=== PATIENT | female | born 1985 | race Caucasian/White ===

== ENCOUNTER 2016-11-27 23:32 | Inpatient (IN) | payer BC ==
[2016-11-28] MEDS ORDERED: Calcium Carbonate 500 MG Tab.Chew PO PRN (03:48)
[2016-11-28] MEDS ORDERED: Lactated Ringers 1,000 ML IV ONE (05:00)
[2016-11-28] MEDS ORDERED: fentaNYL 300 MCG in Ropivacaine 200 ML EPIDUR ONE (05:14)
[2016-11-28] MEDS ORDERED: fentaNYL 100 MCG/2 ML SDV EPIDUR ONE (05:14)
[2016-11-28] MEDS ORDERED: Sodium Chloride 0.9% 10 ML Syringe FLUSH PRN (05:18)
[2016-11-28] MEDS ORDERED: Promethazine 25 MG/ML SDV IV PRN (05:45)
[2016-11-28] MEDS ORDERED: diphenhydrAMINE 50 MG/ML SDV IVPUSH PRN (05:45)
[2016-11-28] MEDS ORDERED: ePHEDrine 50 MG/ML SDV IVPUSH PRN (05:45)
[2016-11-28] MEDS ORDERED: Naloxone 0.4 MG in Sodium Chloride 0.9% 100 ML IV PRN (05:45)
[2016-11-28] MEDS ORDERED: Naloxone 0.4 MG/ML SDV IVPUSH PRN (05:45)
[2016-11-28] MEDS ORDERED: Lactated Ringers 1,000 ML IV SCH (06:00)
[2016-11-28] MEDS ORDERED: ePHEDrine 50 MG/ML SDV ONE (07:05)
[2016-11-28] MEDS ORDERED: Naloxone 0.4 MG/ML SDV ONE (07:05)
--- NOTE | 2016-11-28 08:25 | PCM.SN ---
- Free Text/Narrative Note: 30, para 0 group B negative obtain rupture membranes and she is term. Cervix is 9 cm/90/0 Assessment remnant term spontaneous rupture membranes group B- Plan-vaginal delivery/epidural
[2016-11-28] MEDS ORDERED: Ondansetron 4 MG/2 ML SDV IVPUSH PRN (10:10)
[2016-11-28] MEDS ORDERED: Lidocaine 1% 20 ML MDV INJECT ONE (11:35)
[2016-11-28] MEDS ORDERED: Oxytocin 10 Units/1 ML SDV IM ONE (11:35)
--- NOTE | 2016-11-28 12:06 | PCM.DEL ---
L & D Note - General Info Date of Service: 11/28/16 - Delivery Note Labor: Spontaneous Delivery Outcome: Livebirth Delivery Mode: Spontaneous Presentation: OA Nuchal Cord: None Prep: Other Anesthesia Type: Epidural Anesthetic: Lidocaine (Xylocaine) 1% Plain Local Anesthetic Volume: 5cc Amniotic Fluid Description: Clear Episiotomy Type: None Laceration: 2nd Degree Suture type: Vicryl Suture size: 4-0 Placenta: Intact, Spontaneous Cord: 3 Vessels Resuscitation Needed: No : Suctioned Delivery Comments (Free Text/Narrative):: Blood loss less than 500 cc and complications none - Patient Data Vitals - Most Recent: Last Vital Signs Temp 98 F 11/28/16 07:00 Pulse 90 11/28/16 08:20 Resp 18 11/28/16 07:00 BP 138/84 11/28/16 08:20 Pulse Ox Weight - Most Recent: 280 lb I&O - Last 24 Hours: Intake & Output 11/27/16 11/28/16 11/28/16 22:59 06:59 14:59 Intake Total 1500 Output Total 300 Balance 1200 Med Orders - Current: Current Medications Calcium Carbonate/Glycine (Tums) 1,000 mg PO Q2H PRN PRN Reason: Indigestion Last Admin: 11/28/16 04:04 Dose: 1,000 mg Diphenhydramine HCl (Benadryl) 25 mg IVPUSH ASDIRECTED PRN PRN Reason: PRURITUS Ephedrine Sulfate (Ephedrine Sulfate) 5 mg IVPUSH ASDIRECTED PRN PRN Reason: HYPOTENSION Lactated Ringer's (Ringers, Lactated) 1,000 mls @ 150 mls/hr IV ASDIRECTED LISANDRA Last Admin: 11/28/16 06:07 Dose: 150 mls/hr Naloxone HCl 0.4 mg/ Sodium (Chloride) 101 mls @ 25 mls/hr IV ASDIRECTED PRN PRN Reason: PER ORDER OF ANESTHESIA Naloxone HCl (Narcan) 0.1 mg IVPUSH ASDIRECTED PRN PRN Reason: RESPIRATORY STATUS Ondansetron HCl (Zofran) 4 mg IVPUSH Q6H PRN PRN Reason: NAUSEA/VOMITING Promethazine HCl (Phenergan) 6.25 - 12.5 mg IV Q4H PRN PRN Reason: NAUSEA AND VOMITING Sodium Chloride (Saline Flush) 10 ml FLUSH ASDIRECTED PRN PRN Reason: Keep Vein Open Discontinued Medications Ephedrine Sulfate (Ephedrine Sulfate) Confirm Administered Dose 50 mg .ROUTE .STK-MED ONE Stop: 11/28/16 07:06 Lactated Ringer's (Ringers, Lactated) 1,000 mls @ 999 mls/hr IV BOLUS ONE Stop: 11/28/16 06:00 Last Admin: 11/28/16 05:00 Dose: 999 mls/hr Naloxone HCl (Narcan) Confirm Administered Dose 0.4 mg .ROUTE .STK-MED ONE Stop: 11/28/16 07:06 - Problem List & Annotations (1) Vaginal delivery SNOMED Code(s): 361457092 Code(s): O80 - ENCOUNTER FOR FULL-TERM UNCOMPLICATED DELIVERY Status: Acute Current Visit: Yes - Problem List Review Problem List Initiated/Reviewed/Updated: Yes - My Orders Last 24 Hours: My Active Orders 11/28/16 00:08 Patient Status [ADT] Routine Resuscitation Status Routine 11/28/16 01:04 Admission Status [Patient Status] [ADT] Routine 11/28/16 03:48 Calcium Carbonate [Tums] 1,000 mg PO Q2H PRN 11/28/16 04:55 Peripheral IV Insertion Adult [OM.PC] Routine 11/28/16 05:18 Sodium Chloride 0.9% [Saline Flush] 10 ml FLUSH ASDIRECTED PRN 11/28/16 06:00 Lactated Ringers [Ringers, Lactated] 1,000 ml IV ASDIRECTED 11/28/16 12:02 Patient Status [ADT] Routine May Shower [RC] ASDIRECTED Up ad Kasie [RC] ASDIRECTED Vital Signs [RC] PFP Assess Lochia [WOMSER] Per Unit Routine Assess Uterine Involution [WOMSER] Per Unit Routine 11/28/16 12:03 Ice Therapy [OM.PC] Per Unit Routine Perineal Care [OM.PC] Per Unit Routine Peripheral IV Discontinue [OM.PC] Routine Sitz Bath [OM.PC] Per Unit Routine 11/29/16 05:11 HEMOGLOBIN/HEMATOCRIT,HH [HEME] AM 11/29/16 09:00 Cephalexin [Keflex] 500 mg PO DAILY - Plan Plan:: 1. Normal orders. 2. Patient take cephalexin for cellulitis prevention once a day. She is tolerating the past and does not have an allergy to it.
[2016-11-28] MEDS ORDERED: Acetaminophen/Codeine 300-30 MG Tab PO PRN (12:07)
[2016-11-28] MEDS: Ibuprofen 800 MG Tab PO SCH ×2 (12:35→20:36)
[2016-11-29] MEDS: Ibuprofen 800 MG Tab PO SCH ×3 (04:30→19:57)
--- NOTE | 2016-11-29 07:46 | PCM.PNPP ---
- General Info Date of Service: 11/29/16 Admission Dx/Problem (Free Text): Patient without concerns. She states her bleeding is decreasing. She is her perineum is sorb it is getting better and pain is controlled on ibuprofen. Nurses report she has some leg swelling. Functional Status: Reports: Pain Controlled - Patient Data Vital Signs - Most Recent: Last Vital Signs Temp 97.7 F 11/28/16 20:30 Pulse 95 11/28/16 20:30 Resp 18 11/28/16 20:30 BP 148/92 H 11/28/16 20:30 Pulse Ox 97 11/28/16 20:30 Weight - Most Recent: 280 lb I&O - Last 24 Hours: Intake & Output 11/28/16 11/29/16 11/29/16 22:59 06:59 14:59 Intake Total 1050 500 Output Total 900 1000 Balance 150 -500 Lab Results - Last 24 Hours: Laboratory Results - last 24 hr 11/29/16 Range/Units 07:00 Hgb 11.3 L (11.5-15.5) g/dL Hct 32.6 (30.0-51.3) % Med Orders - Current: Current Medications Acetaminophen/Codeine Phosphate (Tylenol With Codeine No.3 300mg/30mg) 1 tab PO Q4H PRN PRN Reason: Pain Calcium Carbonate/Glycine (Tums) 1,000 mg PO Q2H PRN PRN Reason: Indigestion Last Admin: 11/28/16 04:04 Dose: 1,000 mg Cephalexin (Keflex) 500 mg PO DAILY [facility] Diphenhydramine HCl (Benadryl) 25 mg IVPUSH ASDIRECTED PRN PRN Reason: PRURITUS Ephedrine Sulfate (Ephedrine Sulfate) 5 mg IVPUSH ASDIRECTED PRN PRN Reason: HYPOTENSION Lactated Ringer's (Ringers, Lactated) 1,000 mls @ 150 mls/hr IV ASDIRECTED [facility] Last Admin: 11/28/16 06:07 Dose: 150 mls/hr Naloxone HCl 0.4 mg/ Sodium (Chloride) 101 mls @ 25 mls/hr IV ASDIRECTED PRN PRN Reason: PER ORDER OF ANESTHESIA Ibuprofen (Motrin) 800 mg PO Q8H [facility] Last Admin: 11/29/16 04:30 Dose: 800 mg Naloxone HCl (Narcan) 0.1 mg IVPUSH ASDIRECTED PRN PRN Reason: RESPIRATORY STATUS Ondansetron HCl (Zofran) 4 mg IVPUSH Q6H PRN PRN Reason: NAUSEA/VOMITING Promethazine HCl (Phenergan) 6.25 - 12.5 mg IV Q4H PRN PRN Reason: NAUSEA AND VOMITING Sodium Chloride (Saline Flush) 10 ml FLUSH ASDIRECTED PRN PRN Reason: Keep Vein Open Discontinued Medications Ephedrine Sulfate (Ephedrine Sulfate) Confirm Administered Dose 50 mg .ROUTE .STK-MED ONE Stop: 11/28/16 07:06 Last Admin: 11/28/16 12:35 Dose: Not Given Lactated Ringer's (Ringers, Lactated) 1,000 mls @ 999 mls/hr IV BOLUS ONE Stop: 11/28/16 06:00 Last Admin: 11/28/16 05:00 Dose: 999 mls/hr Lidocaine HCl (Xylocaine 1%) 20 ml INJECT ONETIME ONE Stop: 11/28/16 11:36 Last Admin: 11/28/16 11:35 Dose: 20 ml Naloxone HCl (Narcan) Confirm Administered Dose 0.4 mg .ROUTE .STK-MED ONE Stop: 11/28/16 07:06 Last Admin: 11/28/16 12:35 Dose: Not Given Oxytocin (Pitocin) 10 unit IM ONETIME ONE Stop: 11/28/16 11:36 Last Admin: 11/28/16 11:35 Dose: 10 unit - Interaction Infant Disposition, : [place] in Room with Family Support Person: - Recovery Exam Fundal Tone: Firm Fundal Level: 2 Fingerbreadths Below Umbilicus Fundal Placement: Midline Lochia Amount: Moderate Lochia Color: Rubra/Red Perineum Description: Intact, Minimal Bruising/Swelling, Redness, Edematous Episiotomy/Laceration: Approximated Bladder Status: Nonpalpable Urinary Elimination: Voided - Exam General: Alert, Oriented, Cooperative Lungs: Normal Respiratory Effort GI/Abdominal Exam: Normal Bowel Sounds, Soft, Other (Fundus firm) Extremities: Pedal Edema Psy/Mental Status: Alert, Normal Affect, Normal Mood - Problem List & Annotations (1) Vaginal delivery SNOMED Code(s): 985648176 Code(s): O80 - ENCOUNTER FOR FULL-TERM UNCOMPLICATED DELIVERY Status: Acute Current Visit: Yes - Problem List Review Problem List Initiated/Reviewed/Updated: Yes - My Orders Last 24 Hours: My Active Orders 11/28/16 12:02 Patient Status [ADT] Routine May Shower [RC] ASDIRECTED Up ad Kasie [RC] ASDIRECTED Vital Signs [RC] PFP Assess Lochia [WOMSER] Per Unit Routine Assess Uterine Involution [WOMSER] Per Unit Routine 11/28/16 12:03 Ice Therapy [OM.PC] Per Unit Routine Perineal Care [OM.PC] Per Unit Routine Peripheral IV Discontinue [OM.PC] Routine Sitz Bath [OM.PC] Per Unit Routine 11/28/16 12:07 Acetaminophen/Codeine [Tylenol with Codeine No.3 300MG/30MG] 1 tab PO Q4H PRN 11/28/16 12:15 Ibuprofen [Motrin] 800 mg PO Q8H 11/29/16 09:00 Cephalexin [Keflex] 500 mg PO DAILY 11/29/16 Breakfast Regular Diet [DIET] - Plan Plan:: 1. Continue current care
[2016-11-29] MEDS: Cephalexin 500 MG Cap PO SCH (10:22)
[2016-11-30] MEDS: Ibuprofen 800 MG Tab PO SCH ×2 (04:39→12:04)
--- NOTE | 2016-11-30 06:51 | PCM.PN ---
- General Info Date of Service: 11/30/16 Admission Dx/Problem (Free Text): The patient without concerns. She says her vaginal bleeding has slowed immensely. Pains under control ibuprofen. She had some leg swelling and that's going down also. - Patient Data Vitals - Most Recent: Last Vital Signs Temp 97.8 F 11/30/16 00:20 Pulse 79 11/30/16 00:20 Resp 18 11/30/16 00:20 BP 137/80 11/30/16 00:20 Pulse Ox 98 11/30/16 00:20 Weight - Most Recent: 280 lb Lab Results Last 24 Hours: Laboratory Results - last 24 hr 11/29/16 Range/Units 07:00 Hgb 11.3 L (11.5-15.5) g/dL Hct 32.6 (30.0-51.3) % Med Orders - Current: Current Medications Acetaminophen/Codeine Phosphate (Tylenol With Codeine No.3 300mg/30mg) 1 tab PO Q4H PRN PRN Reason: Pain Calcium Carbonate/Glycine (Tums) 1,000 mg PO Q2H PRN PRN Reason: Indigestion Last Admin: 11/28/16 04:04 Dose: 1,000 mg Cephalexin (Keflex) 500 mg PO DAILY [facility] Last Admin: 11/29/16 10:22 Dose: 500 mg Diphenhydramine HCl (Benadryl) 25 mg IVPUSH ASDIRECTED PRN PRN Reason: PRURITUS Ephedrine Sulfate (Ephedrine Sulfate) 5 mg IVPUSH ASDIRECTED PRN PRN Reason: HYPOTENSION Lactated Ringer's (Ringers, Lactated) 1,000 mls @ 150 mls/hr IV ASDIRECTED [facility] Last Admin: 11/28/16 06:07 Dose: 150 mls/hr Naloxone HCl 0.4 mg/ Sodium (Chloride) 101 mls @ 25 mls/hr IV ASDIRECTED PRN PRN Reason: PER ORDER OF ANESTHESIA Ibuprofen (Motrin) 800 mg PO Q8H [facility] Last Admin: 11/30/16 04:39 Dose: 800 mg Naloxone HCl (Narcan) 0.1 mg IVPUSH ASDIRECTED PRN PRN Reason: RESPIRATORY STATUS Ondansetron HCl (Zofran) 4 mg IVPUSH Q6H PRN PRN Reason: NAUSEA/VOMITING Promethazine HCl (Phenergan) 6.25 - 12.5 mg IV Q4H PRN PRN Reason: NAUSEA AND VOMITING Sodium Chloride (Saline Flush) 10 ml FLUSH ASDIRECTED PRN PRN Reason: Keep Vein Open Discontinued Medications Ephedrine Sulfate (Ephedrine Sulfate) Confirm Administered Dose 50 mg .ROUTE .STK-MED ONE Stop: 11/28/16 07:06 Last Admin: 11/28/16 12:35 Dose: Not Given Fentanyl (Sublimaze) 100 mcg EPIDUR .STK-MED ONE Stop: 11/28/16 05:15 Lactated Ringer's (Ringers, Lactated) 1,000 mls @ 999 mls/hr IV BOLUS ONE Stop: 11/28/16 06:00 Last Admin: 11/28/16 05:00 Dose: 999 mls/hr Fentanyl 300 mcg/ Ropivacaine 206 mls @ as directed EPIDUR .STK-MED ONE Stop: 11/28/16 05:15 Lidocaine HCl (Xylocaine 1%) 20 ml INJECT ONETIME ONE Stop: 11/28/16 11:36 Last Admin: 11/28/16 11:35 Dose: 20 ml Naloxone HCl (Narcan) Confirm Administered Dose 0.4 mg .ROUTE .STK-MED ONE Stop: 11/28/16 07:06 Last Admin: 11/28/16 12:35 Dose: Not Given Oxytocin (Pitocin) 10 unit IM ONETIME ONE Stop: 11/28/16 11:36 Last Admin: 11/28/16 11:35 Dose: 10 unit - Exam General: Alert, Oriented, Cooperative Lungs: Normal Respiratory Effort GI/Abdominal Exam: Other (Fundus firm) Extremities: Pedal Edema - Problem List & Annotations (1) Vaginal delivery SNOMED Code(s): 140267347 Code(s): O80 - ENCOUNTER FOR FULL-TERM UNCOMPLICATED DELIVERY Status: Acute Current Visit: Yes - Problem List Review Problem List Initiated/Reviewed/Updated: Yes - My Orders Last 24 Hours: My Active Orders 11/29/16 09:00 Cephalexin [Keflex] 500 mg PO DAILY 11/29/16 Breakfast Regular Diet [DIET] - Plan Plan:: 1. Discharge to home
--- NOTE | 2016-11-30 06:55 | PCM.DCSUM1 ---
Discharge Summary - Hospital Course Free Text/Narrative:: Hospital course-patient had a normal delivery. See delivery note. Next a she has some swelling in her legs and her pain was controlled by ibuprofen. She elected to breast-feed. She did not use any Tylenol 3. Hemoglobin day 1 was 11.1. On post day 2 patient swelling was better. Bleeding was slowing and she was using ibuprofen occasionally for pain. She elected to formula feed. Brief History: This is a 30-year-old at term with spontaneous rupture membranes group B negative. Delivered a healthy baby boy in OA position with no nuchal cord. She had epidural for anesthesia. She was second degree tear that was repaired in usual fashion. - Discharge Data Discharge Date: 11/30/16 Discharge Disposition: Home, Self-Care 01 Condition: Good - Discharge Diagnosis/Problem(s) (1) Vaginal delivery SNOMED Code(s): 895508372 ICD Code: O80 - ENCOUNTER FOR FULL-TERM UNCOMPLICATED DELIVERY Status: Acute Current Visit: Yes - Patient Instructions Diet: Regular Diet as Tolerated Activity: As Tolerated Driving: May Drive Today Showering/Bathing: May Shower Notify Provider of: Fever, Increased Pain, Swelling and Redness, Drainage, Nausea and/or Vomiting Other/Special Instructions: 1. Recheck for check in [address] Perla. 2. [id number] ibuprofen for pain. - Discharge Plan Home Medications: Home Meds Cephalexin 500 mg PO DAILY 11/28/16 [History] - Discharge Summary/Plan Comment DC Time >30 min.: No - Patient Data Vitals - Most Recent: Last Vital Signs Temp 97.8 F 11/30/16 00:20 Pulse 79 11/30/16 00:20 Resp 18 11/30/16 00:20 BP 137/80 11/30/16 00:20 Pulse Ox 98 11/30/16 00:20 Weight - Most Recent: 280 lb Lab Results - Last 24 hrs: Laboratory Results - last 24 hr 11/29/16 Range/Units 07:00 Hgb 11.3 L (11.5-15.5) g/dL Hct 32.6 (30.0-51.3) % Med Orders - Current: Current Medications Acetaminophen/Codeine Phosphate (Tylenol With Codeine No.3 300mg/30mg) 1 tab PO Q4H PRN PRN Reason: Pain Calcium Carbonate/Glycine (Tums) 1,000 mg PO Q2H PRN PRN Reason: Indigestion Last Admin: 11/28/16 04:04 Dose: 1,000 mg Cephalexin (Keflex) 500 mg PO DAILY [facility] Last Admin: 11/29/16 10:22 Dose: 500 mg Diphenhydramine HCl (Benadryl) 25 mg IVPUSH ASDIRECTED PRN PRN Reason: PRURITUS Ephedrine Sulfate (Ephedrine Sulfate) 5 mg IVPUSH ASDIRECTED PRN PRN Reason: HYPOTENSION Lactated Ringer's (Ringers, Lactated) 1,000 mls @ 150 mls/hr IV ASDIRECTED [facility] Last Admin: 11/28/16 06:07 Dose: 150 mls/hr Naloxone HCl 0.4 mg/ Sodium (Chloride) 101 mls @ 25 mls/hr IV ASDIRECTED PRN PRN Reason: PER ORDER OF ANESTHESIA Ibuprofen (Motrin) 800 mg PO Q8H [facility] Last Admin: 11/30/16 04:39 Dose: 800 mg Naloxone HCl (Narcan) 0.1 mg IVPUSH ASDIRECTED PRN PRN Reason: RESPIRATORY STATUS Ondansetron HCl (Zofran) 4 mg IVPUSH Q6H PRN PRN Reason: NAUSEA/VOMITING Promethazine HCl (Phenergan) 6.25 - 12.5 mg IV Q4H PRN PRN Reason: NAUSEA AND VOMITING Sodium Chloride (Saline Flush) 10 ml FLUSH ASDIRECTED PRN PRN Reason: Keep Vein Open Discontinued Medications Ephedrine Sulfate (Ephedrine Sulfate) Confirm Administered Dose 50 mg .ROUTE .STK-MED ONE Stop: 11/28/16 07:06 Last Admin: 11/28/16 12:35 Dose: Not Given Fentanyl (Sublimaze) 100 mcg EPIDUR .STK-MED ONE Stop: 11/28/16 05:15 Lactated Ringer's (Ringers, Lactated) 1,000 mls @ 999 mls/hr IV BOLUS ONE Stop: 11/28/16 06:00 Last Admin: 11/28/16 05:00 Dose: 999 mls/hr Fentanyl 300 mcg/ Ropivacaine 206 mls @ as directed EP[facility] .STK-MED ONE Stop: 11/28/16 05:15 Lidocaine HCl (Xylocaine 1%) 20 ml INJECT ONETIME ONE Stop: 11/28/16 11:36 Last Admin: 11/28/16 11:35 Dose: 20 ml Naloxone HCl (Narcan) Confirm Administered Dose 0.4 mg .ROUTE .STK-MED ONE Stop: 11/28/16 07:06 Last Admin: 11/28/16 12:35 Dose: Not Given Oxytocin (Pitocin) 10 unit IM ONETIME ONE Stop: 11/28/16 11:36 Last Admin: 11/28/16 11:35 Dose: 10 unit *Q Meaningful Use (DIS) - VTE *Q VTE Criteria *Q: - Stroke *Q Stroke Criteria *Q: - AMI *Q AMI Criteria *Q:
[2016-11-30] MEDS: Cephalexin 500 MG Cap PO SCH (09:35)
[2016-11-30 09:43] VITALS: BP 121/69
== END 2016-11-30 13:55 | disposition home or self-care (01) | DRG 560 ==
LOC: FB.OBCHECK 23:32 → FB.OB 23:34 → FB.OBCHECK 11-28 01:04 → FB.OB 11-28 01:04 → UNDOADMIN 11-28 01:04
PROVIDERS: ADMIT Family Medicine; ATTEND Family Medicine
PROC: 10E0XZZ Delivery of Products of Conception, External Approach (ICD-10-PCS; principal; 2016-11-28)
PROC: 0KQM0ZZ Repair Perineum Muscle, Open Approach (ICD-10-PCS; 2016-11-28)
PROC: 00HU33Z Insertion of Infusion Device into Spinal Canal, Percutaneous Approach (ICD-10-PCS; 2016-11-28)
DX: O70.1 Second degree perineal laceration during delivery (principal); Z3A.39 39 weeks gestation of pregnancy; Z37.0 Single live birth
CPT/HCPCS: 36415; 85014; 85018; A9270-GY; J2590; J2795; J3010; J7120